=== PATIENT | male | born 1995 | race Caucasian/White ===

== ENCOUNTER 2017-05-22 07:40 | Emergency (ER) | payer OTHER ==
[~2017-05-22] VITALS: Ht 172.7 cm; Wt 96.4 kg
[~2017-05-22 07:40] MED LIST: NO HOME MEDICATIONS
[2017-05-22 07:43] VITALS: TEMP 98.7
[2017-05-22] MEDS ORDERED: ATIVAN 0.50.5 MG/TAB PO (08:10)
[2017-05-22 09:17] VITALS: BP 141/81; PULSE 75
== END 2017-05-22 09:18 | disposition home or self-care (01) ==
LOC: COL.ER 07:40
DX: F41.9 Anxiety disorder, unspecified (principal); R07.89 Other chest pain; F17.210 Nicotine dependence, cigarettes, uncomplicated